=== PATIENT | male | born 1935 | race Caucasian/White ===

== ENCOUNTER 2021-01-23 10:23 | Emergency (ER) | payer OTHER, MEDICAID ==
[~2021-01-23] VITALS: Ht 170.2 cm; Wt 64.9 kg
[2021-01-23 10:35] VITALS: BP 112/76
--- NOTE | 2021-01-23 10:35 | NUR ---
TO BED AMBULATORY
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
--- NOTE | 2021-01-23 10:50 | NUR ---
Dr. Bruce is evaluating patient at bedside.
--- NOTE | 2021-01-23 11:37 | NUR ---
RAD at bedside.
[2021-01-23 13:40] VITALS: BP 110/72
--- NOTE | 2021-01-23 13:42 | NUR ---
Patient discharged with v/s stable. Written and verbal after care instructions given and explained. Patient verbalized understanding. Ambulatory with steady gait. All questions addressed prior to discharge. Advised to follow up with PMD.
== END 2021-01-23 13:42 | disposition home or self-care (01) ==
LOC: MED 10:23
DX: S40.012A Contusion of left shoulder, initial encounter (principal); S50.12XA Contusion of left forearm, initial encounter; J45.909 Unspecified asthma, uncomplicated; E11.9 Type 2 diabetes mellitus without complications; Z98.890 Other specified postprocedural states; V43.52XA Car driver injured in collision with other type car in traffic accident, initial encounter; Y93.89 Activity, other specified; Y92.89 Other specified places as the place of occurrence of the external cause; Y99.8 Other external cause status
CPT/HCPCS: 73030; 73090; 99284

== ENCOUNTER 2021-07-02 15:35 | Inpatient (IN) | payer OTHER, MEDICAID, SELFPAY ==
[~2021-07-02] VITALS: Ht 167.6 cm; Wt 62.6 kg
[2021-07-02] MEDS ORDERED: ALBUTEROL SULFATE/IPRATROPIU 3 ML SOL IH ONE ×3 (16:00→16:30)
[2021-07-02] MEDS ORDERED: ALBUTEROL 0.083% 2.5 MG/3 ML NEBU INH ONE ×2 (16:00→16:30)
[2021-07-02 16:15] VITALS: BP 160/79
[2021-07-02] MEDS ORDERED: NACL 0.9% 1,000 ML IV ONE (16:30)
[2021-07-02] MEDS ORDERED: MAG SULF 2000 MG/WATER PREMIX 50 ML IV ONE (16:30)
[2021-07-02] MEDS ORDERED: methylPREDNISolone SS 125 MG/2 ML VIAL IVP ONE (16:30)
[2021-07-02] MEDS ORDERED: cefTRIAXone 1,000 MG VIAL ONE (17:03)
[2021-07-02] MEDS: AZITHROMYCIN 500 MG in DEXTROSE 5% 250 ML IV ONE ×2 (17:15→18:29)
[2021-07-02 17:22] LABS: BASOPHILS % (AUTO) 0.1 % (0.0-2.0); EOSINOPHILS % (AUTO) 0.1 % (0.0-4.0); HEMATOCRIT 34.7 % (36-52); HEMOGLOBIN 11.5 g/dL (12.0-18.0); LYMPHOCYTES # (AUTO) 0.9 K/uL (2.0-11.5); LYMPHOCYTES % (AUTO) 7.1 % (20.5-51.1); MEAN CORPUSCULAR HEMOGLOBIN 30 pg (27-31); MEAN CORPUSCULAR HGB CONC 33 g/dL (33-37); MEAN CORPUSCULAR VOLUME 89.3 fL (80-94); MONOCYTES % (AUTO) 7.9 % (1.7-9.3); NEUTROPHILS # (AUTO) 10.2 K/uL (1.8-7.7); NEUTROPHILS % (AUTO) 84.8 % (42.2-75.2); PLATELET COUNT (AUTO) 397 K/uL (140-450); RED BLOOD CELL COUNT(AUTO) 3.89 MIL/uL (4.20-6.10); RED CELL DISTRIBUTION WIDTH 14.1 % (11.6-13.7)
[2021-07-02 17:45] LABS: RSV NEGATIVE (NEGATIVE)
[2021-07-02 17:49] LABS: ALBUMIN 2.7 g/dL (3.4-5.0); ANION GAP 10.4 (8-16); ASPARTATE AMINOTRANSFERASE 29 U/L (15-37); CARBON DIOXIDE 32.7 mmol/L (21-32); CHLORIDE 104 mmol/L (98-107); CREATININE 1.6 mg/dL (0.6-1.3); GLUCOSE 162 mg/dL (74-106); POTASSIUM 4.1 mmol/L (3.5-5.1); SODIUM SERUM 143 mmol/L (136-145); TOTAL BILIRUBIN 0.3 mg/dL (0.0-1.0); UREA NITROGEN, BLOOD 27 mg/dL (7-18)
[2021-07-02] MEDS ORDERED: AZITHROMYCIN 500 MG INJ VIAL IV ONE (17:55)
[2021-07-02 18:47] VITALS: BP 114/57
[2021-07-02 19:23] LABS: BILIRUBIN,URINE NEGATIVE (NEGATIVE); BLOOD, URINE NEGATIVE (NEGATIVE); LEUKOCYTE ESTERASE ,URINE NEGATIVE (NEGATIVE); NITRITE, URINE NEGATIVE (NEGATIVE); UGLUCOSE NEGATIVE (NEGATIVE)
[2021-07-02 19:28] LABS: APPEARANCE,URINE CLEAR (CLEAR)
[2021-07-02 19:29] LABS: COLOR,URINE YELLOW (YELLOW)
[2021-07-02] MEDS ORDERED: DEXT 5% / NACL 0.9% 500 ML IV ONE (20:40)
[2021-07-02] MEDS ORDERED: DOCUSATE SODIUM 100 MG GELCAP PO PRN (21:45)
[2021-07-02] MEDS ORDERED: ALBUTEROL HFA MDI 90 MCG/ACTUATION 8 GM INH PRN (21:45)
[2021-07-02] MEDS ORDERED: ZOLPIDEM 5 MG TAB PO PRN (21:45)
[2021-07-02] MEDS ORDERED: guaiFENesin DM 200/20 MG-10 ML 10 ML UDC PO PRN (21:45)
[2021-07-02] MEDS ORDERED: POTASSIUM CHLORIDE 10 MEQ TABER PO PRN (21:45)
[2021-07-02] MEDS ORDERED: ACETAMINOPHEN 325 MG TAB PO PRN (21:45)
[2021-07-02] MEDS ORDERED: COMMUNICATION ORDER MC ONE (21:45)
[2021-07-02] MEDS ORDERED: HYDROcodone/APAP 7.5/325 MG 1 TAB PO PRN (21:45)
[2021-07-02] MEDS ORDERED: ONDANSETRON 4 MG/2 ML VIAL IM/IVP PRN (21:45)
[2021-07-02 22:30] LABS: PROTHROMBIN TIME 11.2 secs (10.8-13.4)
[2021-07-02 22:35] LABS: CHOL/HDL RATIO 4.3 (1-4.5); FREE T4 (FREE THYROXINE) 1.22 ng/dL (0.76-1.46); MAGNESIUM 1.7 mg/dL (1.8-2.4); PHOSPHORUS 2.9 mg/dL (2.5-4.9); THYROID STIMULATING HORMONE 0.52 uIU/mL (0.34-3.74)
[2021-07-03 00:31] VITALS: BP 110/51
[2021-07-03] MEDS ORDERED: TRI48 PO (06:37)
[2021-07-03] MEDS ORDERED: FINA5TAB1 PO (06:37)
[2021-07-03] MEDS ORDERED: METF-350 PO (06:37)
[2021-07-03] MEDS ORDERED: CLOP75TA55 PO (06:37)
[2021-07-03] MEDS ORDERED: LISI-486 PO (06:37)
[2021-07-03] MEDS ORDERED: TAMS0.4C97 PO (06:37)
[2021-07-03] MEDS ORDERED: AMLO5TAB PO (06:37)
[2021-07-03] MEDS ORDERED: ALBU-118 INH (06:37)
[2021-07-03] MEDS ORDERED: ALBU-150 PO (06:37)
[2021-07-03] MEDS ORDERED: GLIP5TER PO (06:37)
[2021-07-03 07:15] LABS: BASOPHILS % (AUTO) 0.1 % (0.0-2.0); HEMATOCRIT 31.8 % (36-52); HEMOGLOBIN 10.5 g/dL (12.0-18.0); LYMPHOCYTES # (AUTO) 0.2 K/uL (2.0-11.5); LYMPHOCYTES % (AUTO) 1.7 % (20.5-51.1); MEAN CORPUSCULAR HEMOGLOBIN 30 pg (27-31); MEAN CORPUSCULAR HGB CONC 33 g/dL (33-37); MEAN CORPUSCULAR VOLUME 89.2 fL (80-94); MONOCYTES # (AUTO) 0.2 K/uL (0.8-1.0); MONOCYTES % (AUTO) 1.7 % (1.7-9.3); NEUTROPHILS # (AUTO) 13.2 K/uL (1.8-7.7); NEUTROPHILS % (AUTO) 96.5 % (42.2-75.2); PLATELET COUNT (AUTO) 340 K/uL (140-450); RED BLOOD CELL COUNT(AUTO) 3.57 MIL/uL (4.20-6.10); RED CELL DISTRIBUTION WIDTH 14.4 % (11.6-13.7); WHITE BLOOD COUNT (AUTO) 13.7 K/uL (4.8-10.8)
[2021-07-03] MEDS ORDERED: COMMUNICATION ORDER MC SCH (09:00)
[2021-07-03] MEDS: PANTOPRAZOLE 40 MG TABEC PO SCH (09:17)
[2021-07-03] MEDS: AZITHROMYCIN 250 MG TAB PO SCH (09:18)
[2021-07-03] MEDS: ASCORBIC ACID 500 MG TAB PO SCH (09:18)
[2021-07-03] MEDS: ZINC SULF 220 MG CAP PO SCH (09:18)
[2021-07-03 10:30] LABS: CARBON DIOXIDE 26.7 mmol/L (21-32); CHLORIDE 104 mmol/L (98-107); CREATININE 1.3 mg/dL (0.6-1.3); GLUCOSE 306 mg/dL (74-106); POTASSIUM 4.7 mmol/L (3.5-5.1); SODIUM SERUM 140 mmol/L (136-145); UREA NITROGEN, BLOOD 25 mg/dL (7-18)
[2021-07-03] MEDS ORDERED: remdesivir CLINICAL MONITORING 1 EA MISC MC PRN (11:20)
[2021-07-03] MEDS ORDERED: methylPREDNISolone SS 40 MG/ML VIAL IVP SCH (11:30)
[2021-07-03] MEDS ORDERED: diphenhydrAMINE 50 MG/ML VIAL IVP SCH (11:30)
[2021-07-03] MEDS ORDERED: ACETAMINOPHEN 325 MG TAB PO SCH (11:30)
[2021-07-03] MEDS ORDERED: NACL 0.9% IV SCH (12:00)
[2021-07-03] MEDS ORDERED: TOCILIZUMAB IV SCH (12:00)
[2021-07-03] MEDS ORDERED: REMDESIVIR. 200 MG in NACL 0.9% 100 ML IV SCH (12:00)
[2021-07-03] MEDS ORDERED: COMMUNICATION ORDER MC PRN (15:25)
[2021-07-03] MEDS: OLUMIANT PO SCH (17:10)
[2021-07-03] MEDS ORDERED: cefTRIAXone 1,000 MG VIAL ONE (17:22)
[2021-07-04 06:28] LABS: BASOPHILS % (AUTO) 0.3 % (0.0-2.0); EOSINOPHILS % (AUTO) 0.1 % (0.0-4.0); HEMATOCRIT 32.6 % (36-52); HEMOGLOBIN 10.7 g/dL (12.0-18.0); LYMPHOCYTES # (AUTO) 0.7 K/uL (2.0-11.5); MEAN CORPUSCULAR HEMOGLOBIN 29 pg (27-31); MEAN CORPUSCULAR HGB CONC 33 g/dL (33-37); MEAN CORPUSCULAR VOLUME 89.1 fL (80-94); MONOCYTES % (AUTO) 8.3 % (1.7-9.3); NEUTROPHILS # (AUTO) 9.9 K/uL (1.8-7.7); NEUTROPHILS % (AUTO) 85.3 % (42.2-75.2); PLATELET COUNT (AUTO) 350 K/uL (140-450); RED BLOOD CELL COUNT(AUTO) 3.65 MIL/uL (4.20-6.10); RED CELL DISTRIBUTION WIDTH 14.3 % (11.6-13.7); WHITE BLOOD COUNT (AUTO) 11.6 K/uL (4.8-10.8)
[2021-07-04 06:37] LABS: ANION GAP 6.7 (8-16); CARBON DIOXIDE 34.4 mmol/L (21-32); CHLORIDE 105 mmol/L (98-107); CREATININE 1.3 mg/dL (0.6-1.3); GLUCOSE 204 mg/dL (74-106); POTASSIUM 5.1 mmol/L (3.5-5.1); SODIUM SERUM 141 mmol/L (136-145); UREA NITROGEN, BLOOD 27 mg/dL (7-18)
[2021-07-04 06:45] LABS: ALBUMIN 2.3 g/dL (3.4-5.0); BILIRUBIN,DIRECT 0.1 mg/dL (0.0-0.3); TOTAL BILIRUBIN 0.2 mg/dL (0.0-1.0)
[2021-07-04 07:07] LABS: T4 (THYROXINE) 7.4 ug/dL (4.5-12.0)
[2021-07-04] MEDS: ZINC SULF 220 MG CAP PO SCH (09:17)
[2021-07-04] MEDS: PANTOPRAZOLE 40 MG TABEC PO SCH (09:17)
[2021-07-04] MEDS: AZITHROMYCIN 250 MG TAB PO SCH (09:17)
[2021-07-04] MEDS: ASCORBIC ACID 500 MG TAB PO SCH (09:17)
[2021-07-04] MEDS: REMDESIVIR. 100 MG in NACL 0.9% 100 ML IV SCH (12:18)
[2021-07-04 16:00] VITALS: BP 150/78
[2021-07-04] MEDS: OLUMIANT PO SCH (17:32)
[2021-07-04 20:00] VITALS: BP 153/86
[2021-07-05] VITALS: BP_SYST 151; BP_SYST 152; BP_DIAS 78
[2021-07-05 04:00] VITALS: BP 151/78
[2021-07-05 06:42] LABS: BASOPHILS % (AUTO) 0.2 % (0.0-2.0); HEMATOCRIT 32.3 % (36-52); HEMOGLOBIN 10.8 g/dL (12.0-18.0); LYMPHOCYTES # (AUTO) 0.7 K/uL (2.0-11.5); LYMPHOCYTES % (AUTO) 7.1 % (20.5-51.1); MEAN CORPUSCULAR HEMOGLOBIN 30 pg (27-31); MEAN CORPUSCULAR HGB CONC 33 g/dL (33-37); MEAN CORPUSCULAR VOLUME 88.8 fL (80-94); MONOCYTES # (AUTO) 0.7 K/uL (0.8-1.0); MONOCYTES % (AUTO) 7.4 % (1.7-9.3); NEUTROPHILS # (AUTO) 7.8 K/uL (1.8-7.7); NEUTROPHILS % (AUTO) 85.3 % (42.2-75.2); PLATELET COUNT (AUTO) 326 K/uL (140-450); RED BLOOD CELL COUNT(AUTO) 3.64 MIL/uL (4.20-6.10); RED CELL DISTRIBUTION WIDTH 13.9 % (11.6-13.7); WHITE BLOOD COUNT (AUTO) 9.2 K/uL (4.8-10.8)
[2021-07-05 06:53] LABS: ANION GAP 8.1 (8-16); CARBON DIOXIDE 33.2 mmol/L (21-32); CHLORIDE 104 mmol/L (98-107); CREATININE 1.2 mg/dL (0.6-1.3); GLUCOSE 243 mg/dL (74-106); POTASSIUM 5.3 mmol/L (3.5-5.1); SODIUM SERUM 140 mmol/L (136-145); UREA NITROGEN, BLOOD 31 mg/dL (7-18)
[2021-07-05 08:00] VITALS: BP 150/86
[2021-07-05] MEDS: ASCORBIC ACID 500 MG TAB PO SCH (09:31)
[2021-07-05] MEDS: AZITHROMYCIN 250 MG TAB PO SCH (09:31)
[2021-07-05] MEDS: PANTOPRAZOLE 40 MG TABEC PO SCH (09:31)
[2021-07-05] MEDS: ZINC SULF 220 MG CAP PO SCH (09:31)
[2021-07-05] MEDS: lisinopriL 10 MG TAB PO SCH (09:32)
[2021-07-05 10:06] LABS: ALBUMIN 2.3 g/dL (3.4-5.0); BILIRUBIN,DIRECT 0.1 mg/dL (0.0-0.3); TOTAL BILIRUBIN 0.2 mg/dL (0.0-1.0)
[2021-07-05 12:00] VITALS: BP 135/70
[2021-07-05] MEDS: REMDESIVIR. 100 MG in NACL 0.9% 100 ML IV SCH (12:31)
[2021-07-05 16:00] VITALS: BP 151/81
[2021-07-05] MEDS: OLUMIANT PO SCH (16:26)
[2021-07-05 20:00] VITALS: BP 140/86
[2021-07-06] VITALS: BP 148/77
[2021-07-06 04:00] VITALS: BP 142/88
[2021-07-06 06:32] LABS: BASOPHILS % (AUTO) 0.2 % (0.0-2.0); EOSINOPHILS % (AUTO) 0.1 % (0.0-4.0); HEMATOCRIT 35.5 % (36-52); HEMOGLOBIN 11.9 g/dL (12.0-18.0); LYMPHOCYTES # (AUTO) 0.9 K/uL (2.0-11.5); LYMPHOCYTES % (AUTO) 10.6 % (20.5-51.1); MEAN CORPUSCULAR HEMOGLOBIN 29 pg (27-31); MEAN CORPUSCULAR HGB CONC 34 g/dL (33-37); MEAN CORPUSCULAR VOLUME 87.6 fL (80-94); MONOCYTES # (AUTO) 0.8 K/uL (0.8-1.0); MONOCYTES % (AUTO) 9.7 % (1.7-9.3); NEUTROPHILS # (AUTO) 6.6 K/uL (1.8-7.7); NEUTROPHILS % (AUTO) 79.4 % (42.2-75.2); PLATELET COUNT (AUTO) 335 K/uL (140-450); RED BLOOD CELL COUNT(AUTO) 4.05 MIL/uL (4.20-6.10); RED CELL DISTRIBUTION WIDTH 13.6 % (11.6-13.7); WHITE BLOOD COUNT (AUTO) 8.3 K/uL (4.8-10.8)
[2021-07-06 07:07] LABS: ANION GAP 6.7 (8-16); CARBON DIOXIDE 35.5 mmol/L (21-32); CHLORIDE 102 mmol/L (98-107); CREATININE 1.2 mg/dL (0.6-1.3); GLUCOSE 194 mg/dL (74-106); POTASSIUM 5.2 mmol/L (3.5-5.1); SODIUM SERUM 139 mmol/L (136-145); UREA NITROGEN, BLOOD 34 mg/dL (7-18)
[2021-07-06 07:10] LABS: ALBUMIN 2.5 g/dL (3.4-5.0); BILIRUBIN,DIRECT 0.1 mg/dL (0.0-0.3); TOTAL BILIRUBIN 0.3 mg/dL (0.0-1.0)
[2021-07-06 08:00] VITALS: BP 157/89
[2021-07-06] MEDS ORDERED: VITC500 PO (08:59)
[2021-07-06] MEDS ORDERED: PANT40EC56 PO (08:59)
[2021-07-06] MEDS ORDERED: DEXA6TAB1 PO (08:59)
[2021-07-06] MEDS ORDERED: ZINC220C29 PO (08:59)
[2021-07-06] MEDS ORDERED: AZIT250T11 PO (08:59)
[2021-07-06] MEDS: ZINC SULF 220 MG CAP PO SCH (09:34)
[2021-07-06] MEDS: ASCORBIC ACID 500 MG TAB PO SCH (09:34)
[2021-07-06] MEDS: AZITHROMYCIN 250 MG TAB PO SCH (09:35)
[2021-07-06] MEDS: PANTOPRAZOLE 40 MG TABEC PO SCH (09:35)
[2021-07-06] MEDS: lisinopriL 10 MG TAB PO SCH (09:35)
[2021-07-06 12:00] VITALS: BP 146/86
[2021-07-06] MEDS: REMDESIVIR. 100 MG in NACL 0.9% 100 ML IV SCH (12:54)
[2021-07-06 16:00] VITALS: BP 136/79
[2021-07-06] MEDS: OLUMIANT PO SCH (17:52)
== END 2021-07-06 21:00 | disposition home or self-care (01) | DRG 871 ==
LOC: MED 15:35 → MMU 20:40
PROVIDERS: ADMIT Family Medicine; ATTEND Family Medicine
PROC: 5A09357 Assistance with Respiratory Ventilation, Less than 24 Consecutive Hours, Continuous Positive Airway Pressure (ICD-10-PCS; principal; 2021-07-02)
PROC: XW033E5 Introduction of Remdesivir Anti-infective into Peripheral Vein, Percutaneous Approach, New Technology Group 5 (ICD-10-PCS; 2021-07-03)
PROC: XW033H5 Introduction of Tocilizumab into Peripheral Vein, Percutaneous Approach, New Technology Group 5 (ICD-10-PCS; 2021-07-03)
DX: A41.9 Sepsis, unspecified organism (principal); E43 Unspecified severe protein-calorie malnutrition; J12.82 Pneumonia due to coronavirus disease 2019; N17.0 Acute kidney failure with tubular necrosis; J96.00 Acute respiratory failure, unspecified whether with hypoxia or hypercapnia; J96.01 Acute respiratory failure with hypoxia; U07.1 COVID-19; J45.901 Unspecified asthma with (acute) exacerbation; K21.9 Gastro-esophageal reflux disease without esophagitis; I10 Essential (primary) hypertension; E83.42 Hypomagnesemia; E86.0 Dehydration; E78.2 Mixed hyperlipidemia; Z96.659 Presence of unspecified artificial knee joint; E11.9 Type 2 diabetes mellitus without complications; Z68.22 Body mass index [BMI] 22.0-22.9, adult; Z87.891 Personal history of nicotine dependence
CPT/HCPCS: 36415; 36600; 71045; 80048; 80053; 80076; 81003; 82150; 82803; 82948; 83036; 83605; 83615; 83690; 83735; 83880; 84100; 84436; 84439; 84443; 84479; 84484; 85025; 85379; 85610; 85651; 85730; 86140; 86886; 86900; 86901; 87040; 87081; 87086; 87420; 87804; 92610; 93005; 94640; 96365; 96367; 96375; 97163-GP; 99291; J0456; J0696; J1644; J2930; J3262; J3475; J7060; J7613; Q0092; U0003